=== PATIENT | male | born 1935 | race Caucasian/White ===

== ENCOUNTER 2017-09-25 00:56 | Inpatient (IN) | payer MEDICARE, OTHER ==
[2017-09-25 03:14] LABS: ABNORMAL IP MESSAGE 1; HEMOGLOBIN 12.2 g/dl (14.0-18.0); MEAN CORPUSCULAR HEMOGLOBIN 32.5 pg (29.0-33.0); MEAN CORPUSCULAR HGB CONC 33.9 g/dl (32.0-37.0); MEAN PLATELET VOLUME 10.8 fl (7.4-10.4); PLATELET COUNT 101 10^3/UL (140-415); POSITIVE DIFF @See below; RED BLOOD COUNT 3.75 10^6/ul (4.70-6.10); RED CELL DISTRIBUTION WIDTH 13.8 % (11.5-14.5)
[2017-09-25 03:14] LABS: WHITE BLOOD COUNT 16.8 10^3/ul (4.8-10.8)
[2017-09-25 03:17] LABS: INR 0.93; PROTIME 12.5 Sec (11.9-14.9)
[2017-09-25 03:18] LABS: ALANINE AMINOTRANSFERASE 15 IU/L (13-69); ALBUMIN 3.5 g/dl (3.3-4.9); ALKALINE PHOSPHATASE 103 IU/L (42-121); ANION GAP 11 (8-16); ASPARTATE AMINO TRANSFERASE 13 IU/L (15-46); BILIRUBIN,INDIRECT 0.2 mg/dl (0-1.1); BILIRUBIN,TOTAL 0.2 mg/dl (0.2-1.3); BLOOD UREA NITROGEN 17 mg/dl (7-20); CALCIUM 8.7 mg/dl (8.4-10.2); CARBON DIOXIDE 32 mmol/L (21-31); CHLORIDE 105 mmol/L (97-110); CREATININE 0.83 mg/dl (0.61-1.24); GLUCOSE 87 mg/dl (70-220); PARTIAL THROMBOPLASTIN TIME 29.2 Sec (25.0-35.0); POTASSIUM 4.3 mmol/L (3.5-5.1); SODIUM 144 mmol/L (135-144); TOTAL PROTEIN 6.4 g/dl (6.1-8.1)
[2017-09-25 03:32] LABS: ADD MAN DIFF? YES
[2017-09-25 04:21] LABS: ANISOCYTOSIS 2+ (0-0); EOSINOPHILS % (M) 1 % (0-7); LYMPHOCYTES #M 9.5 10^3/ul (0.8-2.9); LYMPHOCYTES % (M) 57 % (15-51); MICROCYTOSIS 1+ (0-0); MONOCYTE #M 0.6 10^3/ul (0.3-0.9); MONOCYTES % (M) 4 % (0-11); PLATELET ESTIMATE DECREASED; POLYCHROMASIA 3+ (0-0); SEGMENTED NEUTROPHILS (M) % 38 % (39-77); SMUDGE%M 10 % (0-0)
[2017-09-25] MEDS ORDERED: NACL 0.9% 3 ML SYG IV (06:30)
[2017-09-25] MEDS ORDERED: DOCUSATE SODIUM 100 MG CAP PO (06:30)
[2017-09-25] MEDS ORDERED: ONDANSETRON 4 MG INJ IV (06:30)
[2017-09-25] MEDS ORDERED: ACETAMINOPHEN 325 MG TAB PO (06:30)
[2017-09-25] MEDS ORDERED: BISACODYL (EC) 5 MG TAB PO (06:30)
[2017-09-25] MEDS: LORAZEPAM 2 MG INJ IV (07:24)
[2017-09-25] MEDS: ASPIRIN 325 MG TAB PO (07:24)
[2017-09-25 07:41] LABS: URINE BLOOD (Dip) POC Negative (NEGATIVE); URINE GLUCOSE (Dip) POC Negative (NEGATIVE); URINE KETONES (Dip) POC Trace (NEGATIVE); URINE LEUKOCYTE EST (Dip) POC Negative (NEGATIVE); URINE NITRITE (Dip) POC Negative (NEGATIVE); URINE TOTAL PROTEIN POC Trace (NEGATIVE)
[2017-09-25 11:19] LABS: WHITE BLOOD COUNT 14.4 10^3/ul (4.8-10.8)
[2017-09-25 11:19] LABS: ABNORMAL IP MESSAGE 1; HEMATOCRIT 34.2 % (42.0-52.0); HEMOGLOBIN 11.3 g/dl (14.0-18.0); MEAN CORPUSCULAR HEMOGLOBIN 31.7 pg (29.0-33.0); MEAN CORPUSCULAR VOLUME 95.8 fl (82.0-101.0); MEAN PLATELET VOLUME 11.1 fl (7.4-10.4); PLATELET COUNT 96 10^3/UL (140-415); POSITIVE DIFF @See below; RED BLOOD COUNT 3.57 10^6/ul (4.70-6.10); RED CELL DISTRIBUTION WIDTH 13.7 % (11.5-14.5)
[2017-09-25 11:23] LABS: ADD MAN DIFF? YES
[2017-09-25 11:32] LABS: MAGNESIUM 1.9 mg/dl (1.7-2.5)
[2017-09-25 11:38] LABS: ALANINE AMINOTRANSFERASE 17 IU/L (13-69); ALBUMIN 3.2 g/dl (3.3-4.9); ALBUMIN/GLOBULIN RATIO 1.45; ALKALINE PHOSPHATASE 84 IU/L (42-121); ANION GAP 10 (8-16); ASPARTATE AMINO TRANSFERASE 13 IU/L (15-46); BILIRUBIN,INDIRECT 0.2 mg/dl (0-1.1); BILIRUBIN,TOTAL 0.2 mg/dl (0.2-1.3); BLOOD UREA NITROGEN 14 mg/dl (7-20); CALCIUM 8.4 mg/dl (8.4-10.2); CARBON DIOXIDE 30 mmol/L (21-31); CHLORIDE 105 mmol/L (97-110); GLUCOSE 80 mg/dl (70-220); POTASSIUM 4.2 mmol/L (3.5-5.1); SODIUM 141 mmol/L (135-144); TOTAL PROTEIN 5.4 g/dl (6.1-8.1)
[2017-09-25 11:47] LABS: HEMOGLOBIN A1C 5.1 % (0-5.9)
[2017-09-25 11:51] LABS: CHOLESTEROL 142 mg/dl (100-200)
[2017-09-25 11:51] LABS: CHOL/HDL RATIO 2.4 RATIO; HDL CHOLESTEROL 57 mg/dl (31-75); LDL CHOLESTEROL,CALCULATED 72 mg/dl; TRIGLYCERIDES 64 mg/dl (0-149)
[2017-09-27] MEDS: LORAZEPAM 2 MG INJ IV (02:30)
[2017-09-27] MEDS: HALOPERIDOL 5 MG INJ IM (06:30)
[2017-09-27] MEDS: ASPIRIN 81 MG TAB PO (09:26)
[2017-09-28] MEDS: ASPIRIN 81 MG TAB PO (08:26)
[2017-09-28] MEDS: DOCUSATE SODIUM 100 MG CAP PO ×2 (12:43→21:07)
[2017-09-28] MEDS: HALOPERIDOL 5 MG INJ IM (22:57)
[2017-09-28] MEDS: LORAZEPAM 2 MG INJ IV (23:45)
[2017-09-29] MEDS: DOCUSATE SODIUM 100 MG CAP PO ×2 (08:27→20:37)
[2017-09-29] MEDS: ASPIRIN 81 MG TAB PO (08:27)
[2017-09-29 17:59] LABS: ADD UMIC YES; UR ASCORBIC ACID NEGATIVE (NEGATIVE); UR BACTERIA MODERATE /HPF (NONE SEEN); UR BILIRUBIN (Dip) NEGATIVE (NEGATIVE); UR BLOOD (Dip) NEGATIVE (NEGATIVE); UR CLARITY CLOUDY (CLEAR); UR COLOR YELLOW (YELLOW); UR GLUCOSE (Dip) NEGATIVE (NEGATIVE); UR KETONES (Dip) NEGATIVE (NEGATIVE); UR LEUKOCYTE ESTERASE (Dip) NEGATIVE Leu/ul (NEGATIVE); UR MUCUS MANY /HPF (NONE SEEN); UR NITRITE (Dip) NEGATIVE (NEGATIVE); UR RBC 1 /HPF (0-5); UR SPECIFIC GRAVITY (Dip) 1.018 (1.003-1.030); UR TOTAL PROTEIN (Dip) NEGATIVE (NEGATIVE); UR UROBILINOGEN (Dip) NEGATIVE (NEGATIVE); UR WBC 4 /HPF (0-5)
[2017-09-30] MEDS: DOCUSATE SODIUM 100 MG CAP PO (08:50)
[2017-09-30] MEDS: ASPIRIN 81 MG TAB PO (08:50)
[2017-09-30 09:16] LABS: WHITE BLOOD COUNT 17.1 10^3/ul (4.8-10.8)
[2017-09-30 09:16] LABS: ABNORMAL IP MESSAGE 1; HEMATOCRIT 42.9 % (42.0-52.0); HEMOGLOBIN 14.5 g/dl (14.0-18.0); MEAN CORPUSCULAR HEMOGLOBIN 31.7 pg (29.0-33.0); MEAN CORPUSCULAR HGB CONC 33.8 g/dl (32.0-37.0); MEAN CORPUSCULAR VOLUME 93.9 fl (82.0-101.0); MEAN PLATELET VOLUME 10.1 fl (7.4-10.4); PLATELET COUNT 157 10^3/UL (140-415); POSITIVE DIFF @See below; RED BLOOD COUNT 4.57 10^6/ul (4.70-6.10); RED CELL DISTRIBUTION WIDTH 13.2 % (11.5-14.5)
[2017-09-30 09:20] LABS: ADD MAN DIFF? YES
[2017-09-30 09:45] LABS: ANION GAP 14 (8-16); BLOOD UREA NITROGEN 13 mg/dl (7-20); CARBON DIOXIDE 31 mmol/L (21-31); CHLORIDE 100 mmol/L (97-110); CREATININE 0.76 mg/dl (0.61-1.24); GLUCOSE 94 mg/dl (70-220); MAGNESIUM 2.1 mg/dl (1.7-2.5); POTASSIUM 4.4 mmol/L (3.5-5.1); SODIUM 141 mmol/L (135-144)
[2017-09-30 10:16] LABS: EOSINOPHILS % (M) 1 % (0-7); LYMPHOCYTES #M 7.1 10^3/ul (0.8-2.9); LYMPHOCYTES % (M) 42 % (15-51); MONOCYTE #M 1.3 10^3/ul (0.3-0.9); MONOCYTES % (M) 8 % (0-11); PLATELET ESTIMATE NORMAL; REACTIVE LYMPHOCYTES #M 1.1 10^3/ul (0.0-0.0); REACTIVE LYMPHOCYTES% (M) 7 % (0-0); SEGMENTED NEUTROPHILS (M) % 42 % (39-77); SMUDGE%M 3 % (0-0)
[2017-09-30 10:20] LABS: LYMPHOCYTES #M 9.9 10^3/ul (0.8-2.9); LYMPHOCYTES % (M) 69 % (15-51); MONOCYTE #M 0.4 10^3/ul (0.3-0.9); MONOCYTES % (M) 3 % (0-11); PLATELET ESTIMATE DECREASED; SEGMENTED NEUTROPHILS (M) % 28 % (39-77)
== END 2017-09-30 14:00 | disposition home or self-care (01) | DRG 65 ==
LOC: E/R 00:56 → MS4 04:06
DX: I63.9 Cerebral infarction, unspecified (principal); G91.1 Obstructive hydrocephalus; G81.94 Hemiplegia, unspecified affecting left nondominant side; D69.6 Thrombocytopenia, unspecified; G93.89 Other specified disorders of brain; M48.02 Spinal stenosis, cervical region; C61 Malignant neoplasm of prostate; R53.83 Other fatigue; R29.810 Facial weakness; H35.30 Unspecified macular degeneration; H54.8 Legal blindness, as defined in USA; Z79.82 Long term (current) use of aspirin; Z87.891 Personal history of nicotine dependence; Z85.828 Personal history of other malignant neoplasm of skin
CPT/HCPCS: 36415; 70200; 70450; 70544; 70551; 71045; 72142; 80048; 80053; 80061; 81001; 81003; 82962; 83036; 83735; 84443; 84484; 85025; 85610; 85730; 87040; 87081; 92523; 92526; 92610; 93005; 93306; 96374; 97116; 97164; 97166; 97530; 97535; 99285-25